=== PATIENT | male | born 1935 | race Caucasian/White ===

== ENCOUNTER 2022-03-20 01:11 | Day surgery (SDC) | payer MEDICARE, SELFPAY ==
[2022-03-13 13:43] VITALS: BMI 27.8
--- NOTE | 2022-03-13 13:53 | PC.NURSE ---
Report to the Outpatient Waiting Room, entrance under the green pavilion located off [facility], at time __12:30PM on date __03/20/22 . Planned Procedure Time: _1:30PM . Time changes happen often and if your time is changed the preop area will call you the afternoon before. - You and your visitor will be asked to self-screen and do not enter if you have any COVID symptoms. - Only one visitor is requested with a max of two and NO children visitors are allowed at this time. - The patient visitor may be requested to leave or wait in car when not with patient due to distancing restrictions. - A mask is optional within the hospital at this time. Patients may have LIGHT BREAKFAST. Take the following medications with a SIP of water the morning of surgery: ____MORNING MEDS DO NOT STOP ANY OF YOUR OTHER PRESCRIPTION MEDICATIONS PRIOR TO SURGERY ?EXCEPT THE FOLLOWING Medications to discontinue per physician ____HOLD ASPIRIN 7 DAYS PRE-OP Date to take last dose____03/13/22 Please no make-up, nail nepali, hairspray, perfume, deodorant, or body powder the day of surgery. No jewelry (including any body piercings) or valuables the day of surgery, leave them at home. Please take a shower or bath the night before, or the morning of, surgery with an antibacterial soap. Wear comfortable, loose fitting clothing. Children are encouraged to wear pajamas. - Jewelry must be removed prior to entering the operating room. Rings and piercings that are not removed may be cut off. - The hospital will not accept responsibility for valuables. - Please leave all valuables, including medications, at home the day of surgery. If you are going home after surgery, a licensed catering driver MAY drive you home. Follow any additional instructions given to you from your surgeon. If you or anyone in your household have experienced Covid symptoms in the past week, please notify your surgeon or the nurse liaison at the phone number below for possible testing. Telephone instructions given to __PATIENT and asked if any additional questions and then verbalized understanding. Patient advised to call surgeon office or pre surgery nurse liaison [phone] if any additional questions.
[2022-03-20] VITALS (11 sets, daily range): BP systolic 128–162; BP diastolic 68–99; PULSE 55–73; RESP 16–22; TEMP 36.1; O2SAT 96–100
--- NOTE | 2022-03-20 10:54 | WPDHPUPDATE1 ---
History and Physical Update Update Date/Time: 03/20/22 10:54 History and Physical has been reviewed, including an updated exam of the patient. There are NO changes in the patient's condition. Risks, benefits, and alternatives have been discussed and questions answered. Patient agrees to proceed with procedure.
[2022-03-20] MEDS: ACETAMINOPHEN 500 MG TABLET 1000 MG PO (13:06)
[2022-03-20] MEDS: BUPivacaine HCL 0.5% PF 30 ML VIAL 7 ML INFILTRATE (14:00)
--- NOTE | 2022-03-20 15:23 | W.PM.PROC2 ---
Procedure Note - Detailed Date of Procedure 03/20/22 Pre-op Diagnosis Trigger finger right ring finger Post-op Diagnosis Same Procedure Performed Right 4th trigger finger release. Surgeon Brandon Martinez MD Anesthesia Local Description of Procedure Patient monitoring was performed by the nursing staff. The hand was prepped and draped in the usual sterile fashion. Local anesthetic 8 mL of 0.5% Marcaine was placed along the incision line at the proposed site of surgery along the 4th ray volarly. The patient had some contractures in the palm in this area. Slightly extensile zigzag incision across the flexion crease was performed. The A1 juan was clearly identified and released. The wound was closed with interrupted Prolene suture. The patient tolerated the procedure well. A bulky sterile dressing was applied. The patient was brought to the outpatient area in stable condition. Estimated Blood Loss 1 Pathology None sent Complications No immediate complications Condition Stable Disposition Same day [facility] Billing Surgery - Charge Forward: Surgery Billing
== END 2022-03-20 14:41 | disposition home or self-care (01) ==
PROVIDERS: Visit Provider Orthopaedic Surgery
PROC: (CPT 26055; principal; 2022-03-20 13:30)
DX: M65.341 Trigger finger, right ring finger (principal); Z87.891 Personal history of nicotine dependence; Z79.82 Long term (current) use of aspirin; Z85.46 Personal history of malignant neoplasm of prostate
CPT/HCPCS: 26055; A9270